=== PATIENT | male | born 1980 | race American Indian/Alaskan Native ===

== ENCOUNTER 2022-04-15 18:58 | Emergency (ER) | payer OTHER ==
[2022-04-15] MEDS ORDERED: Haldol 5 MG IM ONE (19:01)
[2022-04-15] MEDS ORDERED: Ativan 2 MG/1 ML VIAL IM ONE (19:01)
--- NOTE | 2022-04-15 19:01 | ERPHSYRPT ---
- History of Present Illness Time Seen by Provider: 04/15/22 19:01 Source: patient, police Exam Limitations: clinical condition, intoxication Physician History: This is a 26-year-old white male patient who was brought into the emergency department by law enforcement secondary to agitation and threatening behavior. Patient was picked up at a [employer] after he was asked to leave the store carrying and bottle of alcohol. He was yelling and screaming per law enfo rcement report. They provided the significant amount of history in this patient. Patient arrives to the emergency department agitated, screaming, yelling and threatening both verbally and physically. Please officers handcuffed the patient in four-point. Patient spat on one of the officers. Patient is not answering any questions at this time. Patient's heart rate was rapid but he is very agitated screaming and yelling. He is oxygenating well and his systolic blood pressure initial reading is in the 130s. Per law enforcement report the patient purposely banged his forehead against the [place] police officers car leaving a dent in causing a superficial abrasion of this patient's mid forehead. Tetanus status is unknown. Timing/Duration: today Severity of Symptoms-Max: moderate Severity of Symptoms-Current: moderate Context related to: other (Unable to determine) Associated Symptoms: angry, agitated, hostile Previous symptoms: other (Unknown) Allergies/Adverse Reactions: UNOBTAINABLE Allergy (Unverified 04/15/22 19:02) Home Medications: Unobtainable 04/15/22 [History] Travel Risk - International Travel Have you traveled outside of the country in past 3 weeks: No - Coronavirus Screening Are you exhibiting any of the following symptoms?: No Close contact with a COVID-19 positive Pt in past 14-21 Days: No - Past Medical History Pertinent Past Medical History: No - Past Surgical History Past Surgical History: No - Review of Systems Constitutional: Other (Patient not answering questions) Eyes: Other (Patient not answering questions at this time) Ears, Nose, & Throat: Other (Patient not answering questions) Respiratory: Other (Patient not answering questions) Cardiac: Other (Patient not answering questions) Abdominal/Gastrointestinal: Other (Patient not answering questions at this time) Genitourinary Symptoms: Other (Not answering questions at this time) Musculoskeletal: Other (Not answering questions at this time) Skin: Other (Patient not answering questions) Neurological: Other (Patient not answering questions) Psychological: Other (Agitated) Endocrine: Other (Patient not answering questions) Hematologic/Lymphatic: Other (Patient not answering questions) Immunological/Allergic: Other (Patient's not answering questions) - Nursing Vital Signs Nursing Vital Signs: Initial Vital Signs Temperature 98.1 F 04/15/22 19:01 Pain Scale Pain Intensity 0 - Physical Exam General Appearance: other (Hostile and agitated) Eyes, Ears, Nose, Throat Exam: dry mucous membranes, tonsillar exudate Neck Exam: normal inspection, non-tender, supple Respiratory Exam: normal breath sounds, lungs clear, airway intact, No chest tenderness, No respiratory distress Cardiovascular Exam: tachycardia Gastrointestinal/Abdominal Exam: soft, normal bowel sounds, No tenderness Extremities Exam: normal inspection, normal range of motion, No evidence of injury Current Suicidality: denies suicide plan Neurological Exam: oriented x 3, agitated Appearance: disheveled, impaired insight Behavior/Eye Contact/Speech: increased rate of speech, belligerent, alert & uncooperative, intoxicated appearance Skin Exam: normal color, warm, dry SpO2 Interpretation: normal O2 Delivery: Room Air Ordered Tests: Active Orders 24 hr Category Date Time Status IV Insertion STAT Care 04/15/22 19:01 Active ACETAMINOPHEN Stat Lab 04/15/22 19:30 Completed CBC W DIFF Stat Lab 04/15/22 19:30 Completed CMP Stat Lab 04/15/22 19:30 Completed ETHYL ALCOHOL Stat Lab 04/15/22 19:30 Completed SALICYLATE Stat Lab 04/15/22 19:30 Completed UA W/RFX CULTURE Stat Lab 04/15/22 19:35 Results Urine Triage Profile Stat Lab 04/15/22 19:35 Completed Medication Summary Discontinued Medications Generic Name Dose Route Start Last Admin Trade Name Freq PRN Reason Stop Dose Admin Diphtheria/Tetanus/Acell Pertussis 0.5 ml 04/15/22 19:17 04/15/22 19:25 Tdap --Diph,Pertuss(Acell),Tet Vac/Pf 0.5 Ml Vial IM 04/15/22 19:18 0.5 ml .ONCE ONE Administration Diphtheria/Tetanus/Acell Pertussis Confirm 04/15/22 19:25 Tdap --Diph,Pertuss(Acell),Tet Vac/Pf 0.5 Ml Vial Administered 04/15/22 19:26 Dose 0.5 ml IM .STK-MED ONE Haloperidol Lactate 10 mg 04/15/22 19:01 04/15/22 19:07 Haloperidol Lactate 5 Mg/Ml Vial IM 04/15/22 19:02 10 mg STAT ONE Administration Haloperidol Lactate Confirm 04/15/22 19:06 Haloperidol Lactate 5 Mg/Ml Vial Administered 04/15/22 19:07 Dose 10 mg .ROUTE .STK-MED ONE Lorazepam 1 mg 04/15/22 19:01 04/15/22 19:07 Lorazepam 2 Mg/1 Ml 2 Mg Vial IM 04/15/22 19:02 1 mg STAT ONE Administration Lorazepam Confirm 04/15/22 19:05 Lorazepam 2 Mg/1 Ml 2 Mg Vial Administered 04/15/22 19:06 Dose 2 mg .ROUTE .STK-MED ONE Lab/Rad Data: Laboratory Result Diagrams 04/15/22 19:30 04/15/22 19:30 Laboratory Results 04/15/22 04/15/22 04/15/22 Range/Units 19:35 19:35 19:30 WBC (4.0-10.5) x10^3/uL RBC (4.1-5.6) x10^6/uL Hgb (12.5-18.0) g/dL Hct (42-50) % MCV (78-100) fL MCH (26-32) pg MCHC (32-36) g/dL RDW (11.5-14.0) % Plt Count (150-450) x10^3/uL MPV (7.5-11.0) fL Gran % (36.0-66.0) % Immature Gran % (Auto) (0.00-0.4) % Nucleat RBC Rel Count (0.00-0.1) % Eos # (Auto) (0-0.5) x10^3/uL Immature Gran # (Auto) (0.00-0.03) x10^3u/L Absolute Lymphs (auto) (1.0-4.6) x10^3/uL Absolute Monos (auto) (0.0-1.3) x10^3/uL Absolute Nucleated RBC (0.00-0.01) x10^3u/L Lymphocytes % (24.0-44.0) % Monocytes % (0.0-12.0) % Eosinophils % (0.00-5.0) % Basophils % (0.0-0.4) % Absolute Granulocytes (1.4-6.9) x10^3/uL Basophils # (0-0.4) x10^3/uL Sodium 139 (137-145) mmol/L Potassium 3.9 (3.5-5.1) mmol/L Chloride 107 (98-107) mmol/L Carbon Dioxide 20 L (22-30) mmol/L Anion Gap 16.7 H (5-15) MEQ/L BUN 15 (9-20) mg/dL Creatinine 0.99 (0.66-1.25) mg/dL Estimated GFR > 60.0 ML/MIN Glucose 97 (74-106) mg/dL Calcium 9.3 (8.4-10.2) mg/dL Total Bilirubin 0.90 (0.2-1.3) mg/dL AST 24 (17-59) U/L ALT 17 (0-50) U/L Alkaline Phosphatase 56 (38-126) U/L Serum Total Protein 7.6 (6.3-8.2) g/dL Albumin 4.7 (3.5-5.0) g/dL Urinalys Dipstick Clnc MAIN LAB Urine Color YELLOW (YELLOW) Urine Appearance CLEAR (CLEAR) Urine pH 5.0 (5-6) Ur Specific [place] 1.010 (1.005-1.025) POC Urine Protein Conf NEGATIVE (Negative) Urine Ketones NEGATIVE (NEGATIVE) Urine Nitrite NEGATIVE (NEGATIVE) Urine Bilirubin NEGATIVE (NEGATIVE) Urine Urobilinogen 0.2 (0-1) mg/dL Urine Leukocytes NEGATIVE (NEGATIVE) Urine WBC (Auto) Pending Urine RBC (Auto) Pending U Epithel Cells (Auto) Pending Urine Bacteria (Auto) Pending Urine RBC NEGATIVE (0-5) Myles/ul Ur Culture Indicated? Pending Urine Glucose NEGATIVE (NEGATIVE) mg/dL Salicylates < 1.0 L (2-20) mg/dL Urine Opiates Level NEGATIVE (NEGATIVE) Ur Methadone NEGATIVE (NEGATIVE) Acetaminophen < 10 L (10-30) ug/ml Urine Barbiturates NEGATIVE (NEGATIVE) Ur Phencyclidine (PCP) NEGATIVE (NEGATIVE) Urine Amphetamine NEGATIVE (NEGATIVE) U Benzodiazepine Level NEGATIVE (NEGATIVE) Urine Cocaine NEGATIVE (NEGATIVE) Urine Marijuana (THC) POSITIVE (NEGATIVE) Ethyl Alcohol 197 H (0-10) mg/dL 04/15/22 Range/Units 19:30 WBC 9.1 (4.0-10.5) x10^3/uL RBC 4.98 (4.1-5.6) x10^6/uL Hgb 14.9 (12.5-18.0) g/dL Hct 47.0 (42-50) % MCV 94.4 (78-100) fL MCH 29.9 (26-32) pg MCHC 31.7 L (32-36) g/dL RDW 13.9 (11.5-14.0) % Plt Count 332 (150-450) x10^3/uL MPV 9.6 (7.5-11.0) fL Gran % 43.8 (36.0-66.0) % Immature Gran % (Auto) 0.4 (0.00-0.4) % Nucleat RBC Rel Count 0.0 (0.00-0.1) % Eos # (Auto) 0.32 (0-0.5) x10^3/uL Immature Gran # (Auto) 0.04 H (0.00-0.03) x10^3u/L Absolute Lymphs (auto) 3.73 (1.0-4.6) x10^3/uL Absolute Monos (auto) 0.99 (0.0-1.3) x10^3/uL Absolute Nucleated RBC 0.00 (0.00-0.01) x10^3u/L Lymphocytes % 40.8 (24.0-44.0) % Monocytes % 10.8 (0.0-12.0) % Eosinophils % 3.5 (0.00-5.0) % Basophils % 0.7 (0.0-0.4) % Absolute Granulocytes 4.00 (1.4-6.9) x10^3/uL Basophils # 0.06 (0-0.4) x10^3/uL Sodium (137-145) mmol/L Potassium (3.5-5.1) mmol/L Chloride (98-107) mmol/L Carbon Dioxide (22-30) mmol/L Anion Gap (5-15) MEQ/L BUN (9-20) mg/dL Creatinine (0.66-1.25) mg/dL Estimated GFR ML/MIN Glucose (74-106) mg/dL Calcium (8.4-10.2) mg/dL Total Bilirubin (0.2-1.3) mg/dL AST (17-59) U/L ALT (0-50) U/L Alkaline Phosphatase (38-126) U/L Serum Total Protein (6.3-8.2) g/dL Albumin (3.5-5.0) g/dL Urinalys Dipstick Clnc Urine Color (YELLOW) Urine Appearance (CLEAR) Urine pH (5-6) Ur Specific [place] (1.005-1.025) POC Urine Protein Conf (Negative) Urine Ketones (NEGATIVE) Urine Nitrite (NEGATIVE) Urine Bilirubin (NEGATIVE) Urine Urobilinogen (0-1) mg/dL Urine Leukocytes (NEGATIVE) Urine WBC (Auto) Urine RBC (Auto) U Epithel Cells (Auto) Urine Bacteria (Auto) Urine RBC (0-5) Myles/ul Ur Culture Indicated? Urine Glucose (NEGATIVE) mg/dL Salicylates (2-20) mg/dL Urine Opiates Level (NEGATIVE) Ur Methadone (NEGATIVE) Acetaminophen (10-30) ug/ml Urine Barbiturates (NEGATIVE) Ur Phencyclidine (PCP) (NEGATIVE) Urine Amphetamine (NEGATIVE) U Benzodiazepine Level (NEGATIVE) Urine Cocaine (NEGATIVE) Urine Marijuana (THC) (NEGATIVE) Ethyl Alcohol (0-10) mg/dL - Progress Progress: improved Progress Note: 04/15/22 20:01 Medical decision making: Patient is now less agitated. He has alcohol intoxication. Likely, he is intoxicated with bath salts. Remainder of his drug screen was positive for marijuana and negative for all other drugs we test for. He is medically cleared to go to halfway. Counseled pt/family regarding: lab results, diagnosis, need for follow-up - Departure Departure Disposition: Custodial/Penitentiary Clinical Impression: Alcohol intoxication, Agitation, Medical clearance for incarceration Condition: Stable Critical Care Time: No
[2022-04-15] MEDS ORDERED: Ativan 2 MG/1 ML VIAL ONE (19:05)
[2022-04-15] MEDS ORDERED: Haldol 5 MG ONE (19:06)
[2022-04-15] MEDS ORDERED: Adacel Vial IM ONE ×2 (19:17→19:25)
[2022-04-15 19:38] LABS: Basophil (Absolute #) 0.06 x10^3/uL (0-0.4); Eosinophil % 3.5 % (0.00-5.0); Eosinophil (Absolute #) 0.32 x10^3/uL (0-0.5); Hemoglobin 14.9 g/dL (12.5-18.0); Lymphocyte (Absolute #) 3.73 x10^3/uL (1.0-4.6); Lymphocytes % 40.8 % (24.0-44.0); Mean Cell Volume 94.4 fL (78-100); Mean Corpuscular Hemoglobin 29.9 pg (26-32); Mean Corpuscular Hgb Concent. 31.7 g/dL (32-36); Mean Platelet Volume 9.6 fL (7.5-11.0); Monocyte (Absolute #) 0.99 x10^3/uL (0.0-1.3); Monocytes % 10.8 % (0.0-12.0); Neutrophil % 43.8 % (36.0-66.0); Platelet Count 332 x10^3/uL (150-450); Red Blood Count 4.98 x10^6/uL (4.1-5.6); Red Cell Distribution Width 13.9 % (11.5-14.0); White Blood Count 9.1 x10^3/uL (4.0-10.5)
[2022-04-15 19:46] LABS: Mucus SLIGHT /HPF (NEGATIVE)
[2022-04-15 19:50] LABS: Appearance CLEAR (CLEAR); Bilirubin NEGATIVE (NEGATIVE); Dipstick done @ ? MAIN LAB; Glucose NEGATIVE (NEGATIVE); Ketones NEGATIVE (NEGATIVE); Nitrite NEGATIVE (NEGATIVE); Protein,Urine Dip NEGATIVE (Negative); RBC NEGATIVE Ery/ul (0-5); Urobilinogen 0.2 mg/dL (0-1)
[2022-04-15 19:56] LABS: Amphetamine,Urine NEGATIVE (NEGATIVE); Barbiturate,Urine NEGATIVE (NEGATIVE); Benzodiazepine,Urine NEGATIVE (NEGATIVE); Cocaine,Urine NEGATIVE (NEGATIVE); Methadone,Urine NEGATIVE (NEGATIVE); Opiate,Urine NEGATIVE (NEGATIVE); PCP,Urine NEGATIVE (NEGATIVE); THC,Urine POSITIVE (NEGATIVE)
[2022-04-15 19:56] LABS: ACETAMINOPHEN < 10 ug/ml (10-30); ALBUMIN 4.7 g/dL (3.5-5.0); ALKALINE PHOSPHATASE 56 U/L (38-126); ANION GAP 16.7 MEQ/L (5-15); BLOOD UREA NITROGEN 15 mg/dL (9-20); CHLORIDE 107 mmol/L (98-107); Calcium 9.3 mg/dL (8.4-10.2); Carbon Dioxide 20 mmol/L (22-30); Creatinine 1 0.99 mg/dL (0.66-1.25); EST GLOMERULAR FILTRATION RATE > 60.0 ML/MIN; ETHYL ALCOHOL 197 mg/dL (0-10); Glucose 97 mg/dL (74-106); Potassium 3.9 mmol/L (3.5-5.1); SALICYLATE < 1.0 mg/dL (2-20); SGOT/AST 24 U/L (17-59); SGPT/ALT 17 U/L (0-50); SODIUM 139 mmol/L (137-145); Total Protein 7.6 g/dL (6.3-8.2)
[2022-04-15 20:03] VITALS: BP 133/60; PULSE 89; O2SAT 98
[2022-04-15 20:12] LABS: Bacteria RARE /HPF (NEGATIVE); Epithelial Cells RARE /HPF (FEW); RBC NONE SEEN /HPF (0-2)
[2022-04-15 20:15] LABS: Urine Cultured Indicated? NO
[2022-04-15 20:19] LABS: INFLUENZA A NEGATIVE (NEGATIVE); INFLUENZA B NEGATIVE (NEGATIVE); RESPIRATORY SYNCTIAL VIRUS NEGATIVE (Negative); SARS-CoV-2 Xpert Express NEGATIVE (NEGATIVE)
== END 2022-04-15 20:13 ==
LOC: EDBD 18:58 → ED 18:58
DX: Z02.89 Encounter for other administrative examinations (principal); R45.1 Restlessness and agitation; F10.129 Alcohol abuse with intoxication, unspecified; F12.90 Cannabis use, unspecified, uncomplicated; Y90.6 Blood alcohol level of 120-199 mg/100 ml; R45.4 Irritability and anger
CPT/HCPCS: 0241U; 36415; 80053; 80307; 81015; 85025; 90471; 96372; 99283; G0480; 90715; J1630; J2060